=== PATIENT | female | born 1985 | race Caucasian/White ===

== ENCOUNTER 2024-09-06 08:10 | Day surgery (SDC) | payer MEDICAID, SELFPAY ==
[2024-09-05 08:25] VITALS: BMI 30.9
--- NOTE | 2024-09-05 08:37 | EKG_ITS ---
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
[2024-09-05 09:53] LABS: Basophils % (Auto) 0 % (0-2.5); Eosinophils # (Auto) 0.1 Thou/mm3 (0.0-0.5); Eosinophils % (Auto) 2 % (0-10); Hematocrit 40.9 % (36.0-46.0); Immature Granulocytes % (Auto) 0 % (0-0); Immature Granulocytes Auto 0.01 Thou/mm3 (0.00-0.00); Lymphocytes # (Auto) 2.1 Thou/mm3 (1.0-4.8); Lymphocytes % (Auto) 26 % (10-50); Mean Corpuscular HGB Conc 34.2 g/dl (31.0-37.0); Mean Corpuscular Hemoglobin 29.1 pg (25.0-35.0); Mean Corpuscular Volume 85 fL (80-100); Monocytes # (Auto) 0.5 Thou/mm3 (0.0-0.8); Monocytes % (Auto) 7 % (0-12); Neutrophils # (Auto) 5.2 Thou/mm3 (1.8-7.7); Neutrophils % (Auto) 65 % (37-80); Nucleated Red Blood Cell % 0 /100 WBC (0); Platelet Count 277 Thou/mm3 (140-440); RDW Standard Deviation 37.9 fL (36.4-46.3); Red Blood Count 4.81 Miln/mm3 (4.00-5.20)
[2024-09-05 10:11] LABS: Alanine Aminotransferase 15 U/L (10-49); Albumin, Serum 4.8 gm/dL (3.5-5.0); Albumin/Globulin Ratio 1.7 (1.2-2.2); Alkaline Phosphatase 65 U/L (46-116); Anion Gap 7 (7-16); Aspartate Amino Transferase 15 U/L (0-34); BUN/Creatinine Ratio 13 Ratio (12-20); Bilirubin,Total 0.5 mg/dL (0.3-1.2); Blood Urea Nitrogen 10 mg/dL (9-23); Calcium 9.4 mg/dL (8.3-10.6); Calcium (Corrected) 9.4 mg/dL (8.5-10.1); Carbon Dioxide 26.8 mMol/L (20.0-31.0); Chloride 105 mMol/L (98-107); Creatinine (Component) 0.8 mg/dL (0.6-1.3); Estimated Creatinine Clearance 90.5 mL/min (>60); Globulin 2.9 gm/dL (2.3-3.5); Glucose 82 mg/dL (74-106); Osmolality,Calculated 275 (275-295); Potassium 3.7 mMol/L (3.4-5.1); Sodium 139 mMol/L (136-145); Total Protein 7.7 gm/dL (5.7-8.2); eGFR > 60 See Note
[2024-09-05 10:13] LABS: HCG,Qualitative Serum Negative
[2024-09-05 12:35] LABS: HIV (1&2) Antibody Rapid Non-Reactive
[2024-09-06] VITALS (8 sets, daily range): BP systolic 107–128; BP diastolic 76–90; PULSE 80–93; RESP 12–18; TEMP 36.3–36.4; O2SAT 98–100; BMI 30.2
[2024-09-06 02:07] LABS: Hepatitis A Antibody IgM Non Reactive (Non React); Hepatitis B Core Antibody IgM Non Reactive (Non React); Hepatitis B Surface Antigen Non Reactive (Non React); Hepatitis C Antibody Non Reactive (Non React)
--- NOTE | 2024-09-06 08:02 | ESHP_ITS ---
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 FRANK is a 39 year old female para 3 previous x 2 admitted for laparoscopic left ovarian cystectomy. Patient has been followed for over an year with a diagnosis of ovarian cyst and has been having chronic pelvic pain specially during her.'s. 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 Constitutional Constitutional: no acute distress Routine HEENT Exam Head: Present normocephalic and atraumatic Eye: Present EOMI and PERRL ENT: Present mucous membranes moist Routine Neck Exam Neck: Present supple and trachea midline Routine Respiratory Exam Respiratory: Present chest non-tender, lungs clear, normal breath sounds and no resp distress Routine Cardiovascular Exam Cardiovascular: Present RRR Routine Abdominal Exam Abdominal: Present soft and normoactive bowel sounds Routine Extremities Exam Extremities: Present full ROM Routine Skin Exam Skin: Present intact and dry Routine Neurological Exam Neurological: Present alert, oriented X3 and CN II-XII intact Routine Psychiatric Exam Psychiatric: Present normal affect and normal thought process 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 - Results Labs 09/05/24 09:04 09/05/24 09:04 Labs: Short CBC 09/05/24 Range/Units 09:04 WBC 8.0 (3.6-11.0) Thou/mm3 Hgb 14.0 (12.0-16.0) g/dL Hct 40.9 (36.0-46.0) % Plt Count 277 (140-440) Thou/mm3 BMP 09/05/24 09:04 Sodium 139 Potassium 3.7 Chloride 105 Carbon Dioxide 26.8 BUN 10 Creatinine 0.8 Glucose 82 Calcium 9.4 Liver Function 09/05/24 Range/Units 09:04 Total Bilirubin 0.5 (0.3-1.2) mg/dL AST 15 (0-34) U/L ALT 15 (10-49) U/L Alkaline Phosphatase 65 (46-116) U/L Albumin 4.8 (3.5-5.0) gm/dL Impressions Impression: 39-year-old para 3 previous x 2 admitted for diagnostic laparoscopy possible left ovarian cystectomy, possible oophorectomy, possible laparotomy Well counseled about the risk of laparoscopic surgery including injury to the bowel, bladder, risk of oophorectomy, risk of laparotomy, hemorrhage, infection Tumor markers within normal limit Assessment and Plan Additional Assessment & Plan Additional Plan: Boarded for diagnostic laparoscopy Quality Measures Quality Measures VTE prophylaxis
[2024-09-06] MEDS: RINGERS LACTATED 1000 ML 1,000 ML 20 ML IV (09:05)
[2024-09-06] MEDS: METOCLOPRAMIDE INJ 5 MG/ML VIAL 2 ML 10 MG IVP (09:06)
--- NOTE | 2024-09-06 12:46 | SUR.PHASEI ---
pt arrived to PACU via gurney drowsy but arouses to verbal commands, breathing unlabored, dressing to abdomen clean, dry, and intact, report from Neli JIANG and Vikash FLOWER
--- NOTE | 2024-09-06 13:00 | SUR.PHASEI ---
1300: Pt. wakes to name then drifts back to sleep, vitals stable, breathing unlabored, no complaint of pain or nausea, x3 dermabond sites to ABD CDI, no active bleed noted, report received from Shell Forrest RN.
--- NOTE | 2024-09-06 13:46 | SUR.PHASEII ---
1346: Pt. AAOx4, vitals stable, breathing unlabored, no complaint of pain or nausea, x3 dermabond sites to ABD CDI, no active bleed noted, pt. tolerated sips of water well, pt. ambulated to wheelchair with steady gait and no assist, no complications. Gave discharge instructions to the pt. and his ride, both verbalized understanding and had no further questions. Pt. left with all personal belongings.
--- NOTE | 2024-09-08 11:09 | PD.GYNPROC ---
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 General anesthesia was given without any complications.? A time out was given confirming Gladis Luke was undergoing the following, procedure,allergies, and surgeon.The patient was positioned in the dorsal lithotomy position. The bladder was emptied. The perineum was prepped with Betadine solution per routine.The abdomen was prepped with DuraPrep.Attention was then focused to the vagina.? A sponge placed in a ring forceps was placed in the posterior fornix and used as a uterine manipulator.? The surgeon then changed gloves to continue proper sterile technique. Attention was diverted to the abdomen. An umblical incision was first made, Two towel clips were placed lateral to the umbilicus in order to elevate the abdominal wall.? A hemostat was used to assess the depth to the fascia. While applying countertraction by lifting the towel clips, a Veress needle was used to enter the peritoneal cavity, a initial abdominal pressure of 12 mmHg was noted upon entry. Veress needle used for initial pneumoperitoneum establishment. 5 mm port used for the direct trocar entry the abdomen was then insufflated with CO2 gas to 15mmHg, under the opti-view system was advanced into the peritoneal entry.? The rt lower quadrant was evaluated and a 10-mm incision was made . 10-mm trocar placed under camera surveillance.? Left side evaluated and a 5mm trocar inserted under optiview surveillance. On observation: extensive adhesion between pelvic side wall, anterior wall of uterus and anterior abdominal wall, anterior culdesac is obliterated. large left ovarian cyst seen, rt ovary appears normal. careful dissection done on shaq cyst wall, to avoid the cyst rupture so that the cyst can be extracted intact. In the same process, cyst was ruptured , alll cyst contents are drained and shaq cyst wall was gradually peeled off using traction countertraction , untill recovered in completeness. cyst was placed in a endocatch bag , and recovered out through the rt 10 mm port.Taras verdin devide used for rectus sheath closure. Hemostatssis endsured and 2 other ports were closed All the bowel at the initial trocar entry point was examined no entry injuries were noted Estimated blood loss (ml): 10 Surgical staff Operation Date: 09/06/24 10:15 Case Staff ASSEMBLING MOTOR BUILDER: Jostin Stark RN First Assistant: Cassie Del Cid Diagnosis Problem List Completed Was Problem List Reviewed/Reconciled?: Yes
== END 2024-09-06 13:46 | disposition home or self-care (01) ==
PROVIDERS: Anesthesiology; PCP Family Medicine; Referring Provider Student in an Organized Health Care Education/Training Program; Visit Provider Student in an Organized Health Care Education/Training Program
PROC: (CPT 58662; principal; 2024-09-06 10:00)
DX: D27.1 Benign neoplasm of left ovary (principal); Z01.810 Encounter for preprocedural cardiovascular examination
CPT/HCPCS: 58662; 36415; 80053; 80074; 84703; 85025; 86703; 86850; 86900; 86901; 87070; 87205; 93005; A4217; A4649; J0131; J1885; J2250; J2704; J2765; J3010; J3490; J7120